=== PATIENT | female | born 1960 | race Caucasian/White ===

== ENCOUNTER 2018-10-16 14:13 | Emergency (ER) | payer BC, SELFPAY ==
[2018-10-16 14:13] VITALS: BP 116/71; PULSE 88; RESP 20; TEMP 36.5; O2SAT 100
--- NOTE | 2018-10-16 14:38 | DI.CT_ITS ---
SYMPTOMS/DIAGNOSIS: ABDOMINAL PAIN, WORSE IN LEFT LOWER QUADRANT CT OF THE ABDOMEN AND PELVIS: There are no prior comparison exams. Images were performed from the lung bases through the ischial tuberosities after IV and without oral contrast. The exam is extremely limited by patient body habitus and motion. The heart size appears normal. Respiratory motion is seen at the lung bases, which are grossly clear. The liver shows fatty infiltration. The patient is status post cholecystectomy. No biliary dilatation is seen. There is a question of a diverticulum of the third portion of the duodenum. The spleen, pancreas and right adrenal are unremarkable. There is a small cyst at the mid to lower pole of the right kidney. There is no hydronephrosis or calculi of either kidney. The urinary bladder is unremarkable. There is a nodule of the left adrenal gland measuring 3.2 x 2.6 cm. It appears well circumscribed and may represent an adenoma. The appendix projects posteriorly in the right lower quadrant and appears normal. Portions of the bowel are not well evaluated due to motion. The colon is redundant and shows diverticula, greater in the descending and sigmoid colon. No inflammatory changes are identified. There is a large defect, aproximately 10cm, in the left anterior abdominal wall at the level of the umbilicus containing a loop of nonobstructed transverse colon. There is increased stool seen in the rectum. A moderate quantity of stool is seen elsewhere. The patient is status post hysterectomy and probably oophorectomy. The aorta shows calcification, but no evidence of an aneurysm. Degenerative changes are seen in the spine. IMPRESSION: 1. Left periumbilical abdominal wall defect containing a loop of nonobstructed colon. The colon is redundant and shows numerous diverticula; however, there is no evidence of diverticulitis. Increased stool is seen in the rectum. 2. 3.2cm Left adrenal nodule. A follow up noncontrast abdominal CT is recommended.
--- NOTE | 2018-10-16 14:43 | ED.GENADUL_ITS ---
Discharge Plan Disposition Patient Disposition: HOME Condition: Fair Discharge Details Chief Complaint: Abd Prob Clinical Impression: Nausea and vomiting, Diverticulosis, Adrenal nodule, Hernia, Hypokalemia Primary Care Provider: Nessa Newby ED Provider: Raquel Vance Home Meds and New Rx's Prescriptions: New ondansetron 4 mg tablet,disintegrating 4 mg PO QID PRN (Reason: nausea and vomiting) Qty: 10 RF: 0 Continued lisinopril-hydrochlorothiazide 10-12.5 mg Tablet 1 tab PO DAILY RF: 0 meloxicam 15 mg Tablet 15 mg PO DAILY RF: 0 colchicine 0.6 mg Tablet 0.6 mg PO DAILY RF: 0 Discharge Instructions Instructions: Hypokalemia (ED), Acute Nausea and Vomiting (ED) Additional Instructions: Continue to encourage hydration. If you develop recurrence of your nausea and vomiting, please use Zofran as prescribed. You have no acute intrabdominal pathology at this time on your CT scan, this is likely associated with what you ate for breakfast. If you develop fevers/chills, increased pain, are unable to stay hydrated or develop other new/worsening symptoms please seek care urgently once again. Please follow up with primary care to discuss symptoms and discuss the incidental finding of adrenal nodule and what follow up may be needed. Referrals: Nessa Newby [Primary Care Provider] - Medical Decision Making Patient is a 58-year-old female presenting today with chief complaint of nausea, vomiting and abdominal pain. She reports the pain came on suddenly at 11:00 today while at work. Patient works as a teacher. States that she is vomited x2. Was given Zofran by EMS with good success. She is in pain in the left lower quadrant area of maximal discomfort also had discomfort in the epigastric region on palpation. Patient is obese. Patient is status post cholecystectomy. She denies any alcohol consumption. Denies any fevers or chills. Surgical history also pertinent for . Concern for possible infectious source, nausea vomiting may be secondary to food intake this morning, also considered pancreatitis diverticulitis. Plan to obtain laboratory evaluation as well as CT scan. Discussed this plan with the patient has been agreement Lab significant for leukocytosis of 14. Hypokalemia of 3.2, we will replenish this year. Labs otherwise unremarkable. CT is in. Consulted with radiologist who advised there is a large amount of stool projecting to the rectum. Advised diverticulosis with no finding of diverticulitis. Notes a defect in the left side of the abdominal wall approximately 10 cm in size with no evidence of incarceration. Also notes an adrenal nodule that she advised follow-up with primary care Discussed these findings with the patient. We discussed incidental findings at length. He will f/u with PCP regarding these. She is hydrating here. Is receiving IV hydration. she was given strict return precautions. Advised f/u with PCP. All questions and concerns were addressed, she is in agreement with this plan. HPI General Mode of arrival: EMS . Date/Time Provider Initiated Documentation: 10/16/18 14:29 . Limitations to Documentation: no limitations . Information obtained by: patient, EMS and RN notes reviewed . History of Present Illness 58 year old F presents to the emergency department with the chief complaint of vomiting, abdominal pain, described as moderate, with intensity rated at 4. Quality is described as aching, and is localized to the abdomen. Patient reports no radiation. Patient started experiencing this hour(s) (1100 today) and it has been constant. Medication improves symptom(s), (improved after Zofran) No exacerbating factors reported . Patient notes loss of appetite and nausea/vomiting; denies chest pain, cough, diaphoresis, fever/chills, headaches, rash, shortness of breath, syncope and weakness. Patient did receive the following treatments prior to arrival, other (zofran administered by EMS) Related Data Home Medications Medication Instructions Recorded Confirmed colchicine 0.6 mg PO DAILY 10/16/18 10/16/18 lisinopril-hydrochlorothiazide 1 tab PO DAILY 10/16/18 10/16/18 meloxicam 15 mg PO DAILY 10/16/18 10/16/18 ondansetron 4 mg PO QID PRN #10 tab 10/16/18 Previous Rx's Medication Instructions Recorded ondansetron 4 mg PO QID PRN #10 tab 10/16/18 Allergies Allergy/AdvReac Type Severity Reaction Status Date / Time No Known Allergies Allergy Unverified 10/16/18 14:16 General Stated Complaint: Abd Prob ASIA: 3 Review of Systems Constitutional Reports as per HPI, Denies chills, Denies fatigue, Denies fever(s) and Denies headache(s) ENT Denies headache(s) Cardiovascular Reports as per HPI, Denies chest pain and Denies dyspnea Respiratory Reports as per HPI, Denies cough and Denies dyspnea Gastrointestinal Reports as per HPI Genitourinary Denies hematuria, Denies dysuria, Denies flank pain, Denies vaginal discharge and Denies vaginal odor Musculoskeletal Reports as per HPI and Denies back pain Integumentary/Breasts Reports as per HPI and Denies rash Neurologic Reports as per HPI and Denies headache(s) Endocrine Denies fatigue [facility] Medical History Arthritis (Acute) H/O atrial fibrillation without current medication (Acute) Pseudogout (Acute) Hypertension (Chronic) Surgical History H/O section (Chronic) History of cholecystectomy (Chronic) Exam Const General: cooperative, healthy appearing, comfortable, no acute distress and well developed Nutritional Appearance: well nourished and obese Orientation: alert and awake HENMT Head: normal to inspection Mouth: moist mucous membranes Resp Effort & Inspection: normal respiratory effort, able to speak in complete sentences and no respiratory distress Auscultation: clear to auscultation bilaterally, no rales, no rhonchi and no wheezes Cardio Rate: regular rate Rhythm: regular rhythm Heart Sounds: S1 normal and S2 normal GI Inspection: large pannus, obesity, no visible herniation and no visible pulsation Palpation: soft, not firm, no guarding and tender (diffusely tender, worse in epigastric and LUQ ) obturator sign negative, psoas sign negative and with no rebound tenderness Percussion: normal to percussion Auscultation: normal bowel sounds Back/Spine/Pelvis Back: no CVA tenderness Skin General skin exam: no rashes or lesions noted Trauma: no lacerations or abrasions Neuro General: alert and awake Cognition: normal cognition Speech: speech normal Gait: normal gait Psych Appearance: grossly normal and well kempt Mental Status: mental status grossly normal Speech and Movement: speech and movement normal Course Vital Signs Temperature 36.5 C 10/16/18 14:13 Pulse 88 10/16/18 14:13 Respiratory Rate 20 10/16/18 14:13 Blood Pressure 116/71 10/16/18 14:13 Pulse Oximetry 100 10/16/18 14:13 Temperature 36.5 C 10/16/18 14:13 Temperature Source Skin 10/16/18 14:13 Pulse 88 10/16/18 14:13 Respiratory Rate 20 10/16/18 14:13 Blood Pressure 116/71 10/16/18 14:13 Blood Pressure Position Sitting 10/16/18 14:13 Pulse Oximetry 100 10/16/18 14:13 Oxygen Delivery Method Room Air 10/16/18 14:13 Oxygen Flow Rate 0 10/16/18 14:13 Pain Level 4 10/16/18 14:13
[2018-10-16] MEDS: Normal Saline 1,000 ML 1000 ML IV (14:45)
[2018-10-16 14:50] LABS: Abs Immature Grans 0.03 k/cumm (0.0-0.09); Absolute Basophil Count 0.04 k/cumm (0.0-0.2); Absolute Eosinophil Count 0.07 k/cumm (0.0-0.7); Absolute Monocyte Count 0.96 k/cumm (0.11-0.7); Basophils % 0.3; Eosinophils % 0.5; HCT 42.6 % (36.0-46.0); Immature Grans % 0.2; Lymphocytes % 7.7; Mean Corp. HGB Concentration 32.9 g/dL (32.0-36.0); Mean Corpuscular Hemoglobin 29.1 pg (27.0-33.0); Mean Corpuscular Volume 88.6 fL (80-95); Mean Platelet Volume 10.2 fL (8.0-11.0); Monocytes % 6.5; Neutrophils % 84.8; Platelet Count 304 x1000/uL (130-400); RBC 4.81 m/cumm (4.00-5.20); RBC Distribution Width 13.3 % (11.7-14.6); White Blood Cell Count 14.74 k/cumm (4.4-10.8)
[2018-10-16 14:52] LABS: Absolute Lymphocyte Count 1.13 k/cumm (1.2-3.4)
[2018-10-16 15:06] LABS: ALT 37 U/L (12-78); AST 23 U/L (15-37); Albumin 3.7 g/dL (3.4-5.0); Alkaline Phosphatase 103 U/L (46-116); Anion Gap 11.6 mmol/L (3-11); BUN 21 mg/dL (7-18); Bilirubin, Total 0.5 mg/dL (0.2-1.0); CO2 27.4 mmol/L (21.0-32.0); CREATININE 0.86 mg/dL (0.55-1.02); Calcium 9.2 mg/dL (8.5-10.1); Chloride 102 mmol/L (98-107); Glucose 141 mg/dL (70-100); Lipase 129 U/L (73-393); Magnesium 1.7 mg/dL (1.8-2.4); Potassium 3.3 mmol/L (3.5-5.1); Sodium 141 mmol/L (136-145); Total Protein 7.4 g/dL (6.4-8.2)
[2018-10-16 15:08] LABS: Troponin I < 0.02 ng/mL (0.00-0.06)
[2018-10-16] MEDS: Omnipaque 350 MG/ML 100 ML BTL IJ (15:36)
[2018-10-16] MEDS: Potassium Chloride 20 MEQ TABCR PO (16:09)
[2018-10-16 16:41] VITALS: BP 116/71; PULSE 88; RESP 20; TEMP 36.5; O2SAT 100
== END 2018-10-16 16:42 | disposition home or self-care (01) ==
PROVIDERS: Emergency Provider Physician Assistant; PCP Student in an Organized Health Care Education/Training Program
DX: R11.2 Nausea with vomiting, unspecified (principal); E87.6 Hypokalemia; K57.90 Diverticulosis of intestine, part unspecified, without perforation or abscess without bleeding; K43.9 Ventral hernia without obstruction or gangrene; E27.9 Disorder of adrenal gland, unspecified; I10 Essential (primary) hypertension
CPT/HCPCS: 36415; 80053; 83690; 93005; 96360; 96361; 99285; 74177; 83735; 84484; 85025; 93010; 99284; J3490